=== PATIENT | female | born 1930 | race Caucasian/White ===

== ENCOUNTER 2016-10-12 09:25 | Emergency (ER) | payer MEDICARE, OTHER ==
[2016-10-12] MEDS ORDERED: ONDANSETRON HCL 4 MG/2 ML VIAL ONE (10:01)
[2016-10-12] MEDS ORDERED: NORMAL SALINE 500 ML IV ONE (10:01)
--- NOTE | 2016-10-12 11:16 | ER PHYSICIAN DOCUMENTATION ---
Physician Documentation [facility] Name:Tamie Callowya Age:86 yrs Sex:Female :1930 Arrival Date:10/12/2016 Time:09:25 Bed4 Private MD:Rodrigo Sethi ED, John Disposition: 10/12/16 10:34 Discharged to Home/Self Care. Impression: Palpitations, Nausea - Vomiting (not ). - Condition is Good. - Discharge Instructions: PALPITATIONS. - Prescriptions for Zofran 4 mg Oral Tablet - take 1-2 tablet by ORAL route every 4-6 hours As needed; 10 tablet. - Medical Reconciliation form form. - Follow up: Rodrigo Sethi; When: 2 - 3 days; Reason: Continuance of care. - Problem is new. - Symptoms have improved. HPI: 10/12 11:31 This 86 yrs old Female presents to ER with complaints of Irregular Pulse, jm Dizziness, Nausea/Vomiting. 11:31 The patient presents with. jm 11:31 The patient presents with a history of heart skipping beats. Context: The symptoms jm occur at rest. Onset: The symptom(s)/episode began/occurred just prior to arrival, today. Duration: The patient or guardian reports multiple episodes, that wax and wane, with no pattern, the episodes last approximately 2 second(s). Associated signs and symptoms: Pertinent positives: nausea, Pertinent negatives: fever, lightheadedness. The patient has experienced a previous episode, and the symptoms today are exactly the same, dx w Afib. . Pt looked at her HR monitor and it was just above 100, so she panicked and came in here. Currently she has no palpitations, just nausea. Pt's vomited and had some loss and excessive stools this AM.. Historical: - Allergies: No known drug Allergies; - Home Meds: 1. HCTZ 2. Atenolol Oral 3. Prilosec Oral 4. levothyroxine oral - PMHx: ARTHRITIS; CLL; HYPERTENSION; ATRIAL FIB; - PSHx: RIGHT TKR; LUCY HIP REPLACEMENTS; ROS: 11:31 Constitutional: Negative for fatigue, fever. jm 11:31 Respiratory: Negative for cough, shortness of breath. 11:31 Abdomen/GI: Positive for nausea, vomiting. 11:31 Neuro: Positive for 11:31 Psych: Negative for anxiety, depression. 11:37 Cardiovascular: Positive for palpitations, Negative for chest pain. 11:37 Abdomen/GI: Positive for Negative for abdominal pain. 11:37 Neuro: Positive for dizziness, Negative for syncope, near syncope. 11:37 All other systems are negative. Exam: 11:37 Constitutional: The patient appears alert, awake, comfortable. 11:37 Neck: Thyroid: appears normal, Trachea: is midline with no obvious abnormalities. 11:37 Cardiovascular: Rate: normal, Rhythm: regular, Pulses: no pulse deficits are appreciated. 11:37 Respiratory: Respirations: normal, Breath sounds: are normal. 11:37 Neuro: Mentation: is normal, Gait: is steady. 11:37 Psych: Behavior/mood is pleasant, cooperative, Affect is calm. Vital Signs: 09:32 BP 146 / 83 (auto/); sc1 09:34 Pulse 96 MON; Resp 20; Pulse Ox 90% ; sc1 MDM: 09:55 Patient medically screened. 11:38 Data reviewed: vital signs, nurses notes, old medical records, EKG, and as a result, I will discharge patient. Counseling: I had a detailed discussion with the patient and/or guardian regarding: the historical points, exam findings, and any diagnostic results supporting the discharge/admit diagnosis, the need for outpatient follow up, with the patient's primary care provider. ECG:. Medication response: The patient's symptoms have improved. Physician consultation:. ED course: Pt much better after zofran and IVF. She denies palpations while she was here. She will take Zofran for home and f/u at [facility]. . 10/12 09:46 Order name: 12-lead EKG; Complete Time: 10:09 tg EC:38 Rhythm is regular. QRS [place] is Normal. DC interval is normal. QRS interval is normal. QT interval is normal. No Q waves. T waves are Normal. No ST changes noted. Dispensed Medications: 09:40 Drug: NS 0.9% 500 ml; Route: IV; Rate: bolus; Site: left antecubital; Delivery: [place] sc1 Tubing; 11:15 Follow up: IV Intake: 500ml sc1 09:52 Drug: Zofran 4 mg; Route: IVP; Infused Over: 2 mins; Site: left antecubital; sc1 Signatures: Deep Barber RN RN tg Cecille Mccann RN RN sc1 Wu Woods MD MD
--- NOTE | 2016-10-12 11:16 | ER NURSING DOCUMENTATION ---
Nurse's Notes [facility] Name:Tamie Calloway Age:86 yrs Sex:Female :1930 Arrival Date:10/12/2016 Time:09:25 Bed4 Private MD:Rodrigo Sethi Diagnosis:Palpitations;Nausea - Vomiting (not ) Presentation: 10/12 09:30 Acuity: DANE 2 tg Triage Assessment: 09:54 General: Appears in no apparent distress, uncomfortable, well developed, well sc1 nourished, well groomed, Behavior is cooperative, pleasant. Pain: Denies pain. GI: Reports nausea, vomiting. Historical: - Allergies: No known drug Allergies; - Home Meds: 1. HCTZ 2. Atenolol Oral 3. Prilosec Oral 4. levothyroxine oral - PMHx: ARTHRITIS; CLL; HYPERTENSION; ATRIAL FIB; - PSHx: RIGHT TKR; LUCY HIP REPLACEMENTS; Screenin:55 Infectious Disease Risk None. Abuse screen: Denies threats or abuse. Nutritional sc1 screening: No deficits noted. Vital Signs: 09:32 BP 146 / 83 (auto/); sc1 09:34 Pulse 96 MON; Resp 20; Pulse Ox 90% ; sc1 ED Course: 09:27 Patient arrived in ED. ama 09:28 Rodrigo Sethi is Private Physician. ama 09:30 Triage completed. tg 09:34 Cecille Mccann, RN is Primary Nurse. sc1 09:40 Notified ED Physician of patient's arrival and chief complaint. Dr. Woods notified. sc1 09:45 Inserted peripheral IV: 20 gauge in left antecubital area and blood collected. sc1 09:53 Valuables Remains with patient. sc1 09:55 Wu Woods MD is Attending Physician. jm 10:34 Rodrigo Sethi is Referral Physician. nguyen 10:57 Discontinued IV. arc Administered Medications: 09:40 Drug: NS 0.9% 500 ml; Route: IV; Rate: bolus; Site: left antecubital; Delivery: [place] sc1 Tubing; 11:15 Follow up: IV Intake: 500ml sc1 09:52 Drug: Zofran 4 mg; Route: IVP; Infused Over: 2 mins; Site: left antecubital; sc1 Intake: 11:15 IV: 500ml; Total: 500ml. [facility] Outcome: 10:34 Discharge ordered by MD. cedillo 11:15 Patient left the ED. [facility] 10/13 10:50 Discharge F/U Call: Unable to reach: left voicemail: tg Signatures: Deep Barber RN RN tg Cecille Mccann RN RN sc1 Wu Woods MD MD jm Averdick, Andrew, Reg Reg ama Anna Marie Navarrete, Reg Reg arc
== END 2016-10-12 11:16 | disposition home or self-care (01) ==
LOC: ER 09:25
DX: R00.2 Palpitations (principal); R11.2 Nausea with vomiting, unspecified; R42 Dizziness and giddiness; I10 Essential (primary) hypertension; I48.91 Unspecified atrial fibrillation; Z79.899 Other long term (current) drug therapy
CPT/HCPCS: 93010; 96374; 99283; 99284; J2405; J7040